=== PATIENT | male | born 1970 | race Caucasian/White ===

== ENCOUNTER 2019-01-15 19:39 | Emergency (ER) | payer BC ==
[2019-01-15] MEDS ORDERED: ceFAZolin 1 GM ADVAN(*) 1 GM in NS 0.9% 50 ML* 50 ML IVPB ONE (20:59)
[2019-01-15] MEDS ORDERED: NS 0.9% 50 ML* 50 ML ONE (21:45)
--- NOTE | 2019-01-15 21:49 | ED ---
Laceration/Wound HPI - HPI Summary HPI Summary: 48-year-old male [facility] with tuft fracture of left pinky finger. He states he cut it in a table saw. Area continues to bleed. given tetanus was given an hour ago. He has no medical conditions. No foreign body in the wound. Has full range of motion of his finger. No other injury. Is right- handed. Works at [employer]. is in extreme amount of pain. - History of Current Complaint Stated Complaint: PINKY LACERATION PER PT Time Seen by Provider: 01/15/19 20:49 Pain Intensity: 2 - Allergy/Home Medications Allergies/Adverse Reactions: Allergies Allergy/AdvReac Type Severity Reaction Status Date / Time No Known Allergies Allergy Verified 01/15/19 19:43 PMH/Surg Hx/FS Hx/Imm Hx Endocrine/Hematology History: Denies: Hx Anticoagulant Therapy, Hx Diabetes - Immunization History Date of Tetanus Vaccine: 01/15/2019 Infectious Disease History: No Infectious Disease History: Denies: Traveled Outside the in Last 30 Days - Family History Known Family History: Positive: Cardiac Disease - Social History Alcohol Use: None Substance Use Type: Reports: None Smoking Status (MU): Never Smoked Tobacco Review of Systems Negative: Fever Negative: Chest Pain Negative: Shortness Of Breath Positive: Other - laceration left pinky All Other Systems Reviewed And Are Negative: Yes Physical Exam Triage Information Reviewed: Yes Vital Signs On Initial Exam: Initial Vitals Temp Pulse Resp BP Pulse Ox 98.1 F 63 18 142/114 97 01/15/19 19:41 01/15/19 19:41 01/15/19 19:41 01/15/19 19:41 01/15/19 19:41 Vital Signs Reviewed: Yes Appearance: Positive: Well-Appearing Skin: Positive: Warm, Dry, Other - avuslion of nail of left pinky, avulsion with laceration 2cm by 1/2cm of distal phalanx left pinky Head/Face: Positive: Normal Head/Face Inspection Eyes: Positive: Normal, Conjunctiva Clear ENT: Positive: Pharynx normal Respiratory/Lung Sounds: Positive: Clear to Auscultation, Breath Sounds Present Cardiovascular: Positive: Normal, RRR Musculoskeletal: Positive: Strength/ROM Intact - left pinky, Other - good pulses Neurological: Positive: Normal Psychiatric: Positive: Normal Procedures - Laceration/Wound Repair 1 Location: Other - left pinky Description: Irregular Anesthesia: Local, 1.0% Length, Depth and Shape: avuslion of nail of left pinkyand avulsion with laceration 2cm by 1/2cm of distal phalanx left pinky Irrigated w/ Saline (ccs): 1,000 Closure: Single Layer Suture Type: Prolene Number of Sutures: 2 Sterile Dressing Applied?: Yes - surgicel, xeroform, coband, telfa, foam finger splint Diagnostics - Vital Signs Vital Signs Temp Pulse Resp BP Pulse Ox 01/15/19 19:41 98.1 F 63 18 142/114 97 - Laboratory Lab Statement: Any lab studies that have been ordered have been reviewed, and results considered in the medical decision making process. - Radiology finger Radiology Interpretation Completed By: ED Physician Summary of Radiographic Findings: tuft fracture Laceration Repair Course/Dx - Course Course Of Treatment: 48-year-old male presents from [facility] with tuft fracture of left pinky finger. He states he cut it in a table saw. Area continues to bleed. given tetanus was given an hour ago. He has no medical conditions. No foreign body in the wound. Has full range of motion of his finger. No other injury. Is right-handed. Works at [employer]. On exam has avulsion of nail of left pinky and avulsion with laceration 2cm by 1/2cm of distal phalanx left pinky. cleaned area and place 2 sutures. since most of skin missing applied Surgicel on the areas that continues to bleed. Placed pressure dressing with Xeroform coband and telfa. Gave finger splint. Told to follow-up with orthopedic. gave dose of ancef and will have continue on Keflex. gave short course of pain medication. Patient understands and agrees with plan. - Differential Dx Differental Diagnoses: Abrasion, Avulsion, Laceration - Clinical Impression Provider Diagnoses: Laceration of left little finger, Open fracture of tuft of distal phalanx of finger Discharge ED - Sign-Out/Discharge Documenting (check all that apply): Patient Departure Patient Received Moderate/Deep Sedation with Procedure: No - Discharge Plan Condition: Good Disposition: HOME Prescriptions: Cephalexin CAP* [Keflex CAP*] 500 mg PO BID #9 cap HYDROcodone/ACETAMIN 5-325 MG* [[place] 5-325 TAB*] 1 tab PO Q6H PRN #12 tab MDD 4 PRN Reason: Pain - Severe Patient Education Materials: Care For Your Stitches (ED), Finger Fracture (ED) Referrals: No Primary Care Phys,NOPCP [Primary Care Provider] - Lissett Ruiz MD [Medical Doctor] - Additional Instructions: Take Keflex twice a day for 5 days Keep area clean and dry for 48 hours, change dressing once a day after that Take Tylenol or iburofen for pain every 6 hours, use norco every 6 hours for pain Return to ED or primary for suture removal in 8-10 days Follow up with ortho Return to ED if develop signs of infection such as fever, spreading redness, or pus formation - Billing Disposition and Condition Condition: GOOD Disposition: Home
[2019-01-15 22:27] VITALS: BP 132/83
== END 2019-01-15 22:26 | disposition home or self-care (01) ==
LOC: ED 19:39
DX: S62.637B Displaced fracture of distal phalanx of left little finger, initial encounter for open fracture (principal); W31.2XXA Contact with powered woodworking and forming machines, initial encounter; Y92.9 Unspecified place or not applicable
CPT/HCPCS: 12001; 96365; 99282; J0690